=== PATIENT | male | born 1985 | race Caucasian/White ===

== ENCOUNTER 2017-03-18 23:59 | Inpatient (IN) | payer SELFPAY ==
[~2017-03-18] VITALS: Ht 167.6 cm; Wt 68.0 kg
[2017-03-19] MEDS ORDERED: LORAZEPAM 1MG TABLET PO ONE (04:30)
[2017-03-19] MEDS ORDERED: IBUPROFEN 600MG TABLET PO ONE (04:30)
[2017-03-19 04:54] LABS: BASOPHILS % 0.6 % (0.0-2.0); EOSINOPHILS % 6.7 % (0.0-5.0); HEMATOCRIT. 38.6 % (42.0-52.0); HEMOGLOBIN. 13.7 g/dL (14.0-18.0); LYMPHOCYTES % 34.4 % (20.0-50.0); MEAN CORPUSCULAR HEMOGLOBIN 29.6 pg (28.0-32.0); MEAN CORPUSCULAR VOLUME 83.1 fL (80.0-94.0); MONOCYTES % 9.1 % (2.0-8.0); NEUTROPHILS % 49.2 % (40.0-76.0); PLATELET 100 x1000/uL (130-400); RED BLOOD CELL COUNT 4.65 mill/uL (4.7-6.1); RED CELL DISTRIBUTION WIDTH 13.6 % (11.6-14.6)
[2017-03-19 04:58] LABS: PROTHROMBIN TIME 10.8 sec
[2017-03-19 05:05] LABS: CARBON DIOXIDE 27 mEq/L (21-32); CHLORIDE 103 mEq/L (98-107)
[2017-03-19] MEDS ORDERED: CEFTRIAXONE 1 G PREMIX 50 ML IV ONE (05:15)
[2017-03-19] MEDS ORDERED: PIPERACILLIN/TAZ 3.375G PREMIX 50 ML IV NR (05:45)
[2017-03-19] MEDS ORDERED: PIPERACILLIN/TAZOBACTAM 3.375GM/50ML PREMIX IV ONE (05:45)
[2017-03-19] MEDS ORDERED: VANCOMYCIN 1,250 MG in DEXT 5% WATER 250 ML IV SCH (05:45)
[2017-03-19] MEDS ORDERED: POTASSIUM CHLORIDE 20MEQ/PACKET PO ONE (06:00)
[2017-03-19 08:00] VITALS: BP 107/74
[2017-03-19 09:00] VITALS: BP 107/74
[2017-03-19] MEDS ORDERED: MAGNESIUM/ALUMINUM HYDROXIDE/SIMETHICONE 30ML UDC PO PRN (10:15)
[2017-03-19] MEDS ORDERED: ACETAMINOPHEN 325MG TABLET PO PRN (10:15)
[2017-03-19] MEDS ORDERED: CLONIDINE 0.1MG TABLET PO PRN (10:15)
[2017-03-19] MEDS ORDERED: DOCUSATE SODIUM 100MG CAPSULE PO PRN (10:15)
[2017-03-19] MEDS ORDERED: KETOROLAC 15MG/ML VIAL IV PRN (10:15)
[2017-03-19] MEDS ORDERED: DIPHENHYDRAMINE 50MG/ML VIAL IV PRN (10:15)
[2017-03-19] MEDS ORDERED: NA PHOS,M-B/NA PHOS,DI-BA ENEMA 118ML PR PRN (10:15)
[2017-03-19] MEDS ORDERED: ZOLPIDEM TARTRATE 5MG TABLET PO PRN (10:15)
[2017-03-19] MEDS ORDERED: ONDANSETRON HCL 4MG/2ML VIAL IV PRN (10:15)
[2017-03-19] MEDS ORDERED: LORAZEPAM 2MG/ML CPJ IV PRN (10:15)
[2017-03-19] MEDS ORDERED: GUAIFENESIN 200MG/10ML SUGAR FREE UDC PO PRN (10:15)
[2017-03-19] MEDS ORDERED: IPRATROPIUM/ALBUTEROL 0.5-3(2.5)MG/3ML NEB INH PRN (10:15)
[2017-03-19] MEDS ORDERED: POTASSIUM CHLORIDE 20MEQ/PACKET PO NR (10:30)
[2017-03-19 12:00] VITALS: BP 102/60
[2017-03-19] MEDS: CLINDAMYCIN 600 MG in DEXTROSE 5% WATER 50 ML IV SCH ×2 (13:34→22:36)
[2017-03-19 16:00] VITALS: BP 96/58
[2017-03-19 20:00] VITALS: BP 103/55
[2017-03-19] MEDS ORDERED: CLON2TAB4 PO (20:35)
[2017-03-19] MEDS ORDERED: ALPR1TAB2 PO (20:35)
[2017-03-19] MEDS: ASCORBIC ACID 500 MG TABLET PO SCH (22:36)
[2017-03-20] VITALS: BP 101/58
[2017-03-20] MEDS: CLINDAMYCIN 600 MG in DEXTROSE 5% WATER 50 ML IV SCH ×2 (02:53→09:30)
[2017-03-20 04:00] VITALS: BP 98/57
[2017-03-20 08:00] VITALS: BP 93/51
[2017-03-20] MEDS ORDERED: ZINC SULFATE 220 MG ( 50 ) CAPSULE PO SCH (09:00)
[2017-03-20] MEDS ORDERED: PANTOPRAZOLE SODIUM 40 MG/VIAL IV SCH (09:00)
[2017-03-20] MEDS: ASCORBIC ACID 500 MG TABLET PO SCH (09:30)
[2017-03-20 12:00] VITALS: BP 106/60
[2017-03-20 12:22] VITALS: BP 93/51
== END 2017-03-20 13:21 | disposition home or self-care (01) | DRG 383 ==
LOC: ER 03-19 05:13 → 6EST 03-19 05:49 → ENRESERV 03-19 07:17
PROVIDERS: ADMIT Internal Medicine; ATTEND Internal Medicine
DX: L03.113 Cellulitis of right upper limb (principal); F11.10 Opioid abuse, uncomplicated; E87.6 Hypokalemia; F17.210 Nicotine dependence, cigarettes, uncomplicated; F19.10 Other psychoactive substance abuse, uncomplicated; F41.0 Panic disorder [episodic paroxysmal anxiety]; Z59.0 Homelessness
CPT/HCPCS: 36415; 73110; 80053; 83036; 83605; 83735; 85025; 85610; 87040; 96361; 96365; 99285; C9113; J1885; J2543; J3370; J3490; J7040; J7060